=== PATIENT | female | born 1950 | race Caucasian/White ===

== ENCOUNTER 2022-03-18 20:16 | Observation (INO) | payer MEDICARE ==
[2022-03-18] MEDS ORDERED: SODIUM CHLORIDE 0.9% 500 ML 500 ML IV STA (20:31)
--- NOTE | 2022-03-18 20:46 | ED ---
Syncope HPI - General Chief Complaint: Syncope Stated Complaint: syncope Time Seen by Provider: 03/18/22 20:24 Source: EMS, RN notes reviewed Mode of arrival: EMS Limitations: no limitations - History of Present Illness Initial Comments: This is a pleasant 73-year-old female who presents via EMS after having a syncopal episode at home. Patient states she was at her sewing machine, sitting, started to feel nauseous and then the next thing she knows she was on the floor. Patient denied any other preceding symptomology. Patient states that since falling she now has a slight ache between her shoulder blades. She is denying any chest pain. Patient states she vomited several times after the syncopal episode. Denies any vision changes. No vertigo. Denying any neck pain. No significant headache. Patient states that both of her great toes are hurting after the fall. Patient denies any recent illness. No fever or chills. No new medications. No history of blood clots. Aching pain between his shoulder blades is not exacerbated by anything. No evidence aspirin by palpation. No headache, no fever or chills, no changes in vision or hearing, no sore throat or difficulty with speech, no neck pain, no chest pain or shortness of breath, no abdominal pain, no nausea or vomiting, no changes in urination or bowel movements, no numbness or tingling, no extremity pain, no skin rashes or lesions. Past medical, surgical, social, and family history reviewed. - Related Data Allergies Allergy/AdvReac Type Severity Reaction Status Date / Time No Known Allergies Allergy Verified 03/18/22 20:49 Review of Systems ROS Statement: Those systems with pertinent positive or pertinent negative responses have been documented in the HPI. ROS Other: All systems not noted in ROS Statement are negative. Past Medical History Past Medical History: Hyperlipidemia, Hypertension Additional Past Surgical History / Comment(s): part of lung removed Past Psychological History: No Psychological Hx Reported Smoking Status: Never smoker Past Alcohol Use History: None Reported Past Drug Use History: None Reported General Exam - General Exam Comments Initial Comments: This is a well-developed, well-nourished 73-year-old female in no significant distress at the time I'm seeing her. Cranial nerves II through XII are intact. Patient is alert and oriented 4. Does not appear to be ill or toxic. CMS in tact Limitations: no limitations General appearance: alert, in no apparent distress Head exam: Present: atraumatic, normocephalic, normal inspection Eye exam: Present: normal appearance, PERRL, EOMI. Absent: scleral icterus, conjunctival injection, periorbital swelling ENT exam: Present: normal exam, normal oropharynx, mucous membranes dry, mucous membranes moist, normal external ear exam Neck exam: Present: normal inspection, full ROM. Absent: tenderness, meningismus, lymphadenopathy Respiratory exam: Present: normal lung sounds bilaterally. Absent: respiratory distress, wheezes, rales, rhonchi, stridor, chest wall tenderness, accessory muscle use, decreased breath sounds, prolonged expiratory Cardiovascular Exam: Present: regular rate, normal rhythm, normal heart sounds. Absent: systolic murmur, diastolic murmur, rubs, gallop, clicks GI/Abdominal exam: Present: soft, normal bowel sounds. Absent: distended, tenderness, guarding, rebound, rigid Extremities exam: Present: normal inspection, full ROM, normal capillary refill, other (Patient has mild tenderness to the dorsum of both great toes. No break in skin integrity.Tetanus. Full range of motion with increased pain). Absent: tenderness, pedal edema, joint swelling, calf tenderness Back exam: Present: normal inspection Neurological exam: Present: alert, oriented X3, CN II-XII intact. Absent: altered, motor sensory deficit Psychiatric exam: Present: normal affect, normal mood Skin exam: Present: warm, dry, intact, normal color. Absent: rash Course Vital Signs 03/18/22 03/18/22 03/18/22 20:18 22:00 23:03 Temperature 97.7 F Pulse Rate 85 87 Respiratory 18 16 Rate Blood Pressure 122/90 128/88 Blood Pressure 138/91 [Right Arm Supine] O2 Sat by Pulse 97 97 Oximetry 03/18/22 23:05 Temperature Pulse Rate Respiratory Rate Blood Pressure Blood Pressure 131/91 [Right Arm Supine] O2 Sat by Pulse Oximetry - Reevaluation(s) Reevaluation #1: 03/18/22 22:49 Patient was reevaluated and is resting comfortably in bed. Alert and oriented 4, cranial nerves II through XII intact. Reevaluation #2: 03/18/22 23:09 Patient reevaluated again, in the room now. Further history given. Apparently the patient has had 2 other syncopal episodes within the last year. EKG Findings - EKG Comments: EKG Findings:: EKG done at 2035 reveals sinus rhythm with a rate of 79. Normal intervals. Normal axis. Normal QRS morphology. Patient does have a Q-wave noted in lead 3 with flattened T waves in lead 3. Nonspecific T-wave flattening seen in the precordial leads as well. Review by the ED attending physician. Medical Decision Making - Medical Decision Making Patient had nausea then apparently had a syncopal episode which was unwitnessed. No definitive seizure activity. Patient has some aching pain between her shoulder blades which she rates The case was discussed in detail with ED attending physician. Presentation, findings, treatment plan discussed in detail. Manager Behavioral, Dr. Gerber - Lab Data Result diagrams: 03/18/22 20:31 03/18/22 20:31 Lab Results 03/18/22 03/18/22 03/18/22 Range/Units 20:31 20:31 20:31 WBC 7.9 (3.8-10.6) k/uL RBC 3.86 (3.80-5.40) m/uL Hgb 12.2 (11.4-16.0) gm/dL Hct 34.3 (34.0-46.0) % MCV 88.9 (80.0-100.0) fL MCH 31.6 (25.0-35.0) pg MCHC 35.6 (31.0-37.0) g/dL RDW 11.8 (11.5-15.5) % Plt Count 274 (150-450) k/uL MPV 8.0 Neutrophils % 70 % Lymphocytes % 20 % Monocytes % 5 % Eosinophils % 3 % Basophils % 1 % Neutrophils # 5.6 (1.3-7.7) k/uL Lymphocytes # 1.6 (1.0-4.8) k/uL Monocytes # 0.4 (0-1.0) k/uL Eosinophils # 0.2 (0-0.7) k/uL Basophils # 0.1 (0-0.2) k/uL D-Dimer 6.41 H (<0.60) mg/L FEU Sodium 139 (137-145) mmol/L Potassium 3.7 (3.5-5.1) mmol/L Chloride 101 (98-107) mmol/L Carbon Dioxide 26 (22-30) mmol/L Anion Gap 12 mmol/L BUN 28 H (7-17) mg/dL Creatinine 1.30 H (0.52-1.04) mg/dL Est GFR (CKD-EPI)AfAm 48 (>60 ml/min/1.73 sqM) Est GFR (CKD-EPI)NonAf 41 (>60 ml/min/1.73 sqM) Glucose 128 H (74-99) mg/dL Calcium 9.6 (8.4-10.2) mg/dL Magnesium 1.7 (1.6-2.3) mg/dL Total Bilirubin 0.3 (0.2-1.3) mg/dL AST 37 H (14-36) U/L ALT 27 (4-34) U/L Alkaline Phosphatase 77 (38-126) U/L Troponin I (0.000-0.034) ng/mL NT-Pro-B Natriuret Pep pg/mL Total Protein 7.2 (6.3-8.2) g/dL Albumin 4.5 (3.5-5.0) g/dL 03/18/22 03/18/22 Range/Units 20:31 20:31 WBC (3.8-10.6) k/uL RBC (3.80-5.40) m/uL Hgb (11.4-16.0) gm/dL Hct (34.0-46.0) % MCV (80.0-100.0) fL MCH (25.0-35.0) pg MCHC (31.0-37.0) g/dL RDW (11.5-15.5) % Plt Count (150-450) k/uL MPV Neutrophils % % Lymphocytes % % Monocytes % % Eosinophils % % Basophils % % Neutrophils # (1.3-7.7) k/uL Lymphocytes # (1.0-4.8) k/uL Monocytes # (0-1.0) k/uL Eosinophils # (0-0.7) k/uL Basophils # (0-0.2) k/uL D-Dimer (<0.60) mg/L FEU Sodium (137-145) mmol/L Potassium (3.5-5.1) mmol/L Chloride (98-107) mmol/L Carbon Dioxide (22-30) mmol/L Anion Gap mmol/L BUN (7-17) mg/dL Creatinine (0.52-1.04) mg/dL Est GFR (CKD-EPI)AfAm (>60 ml/min/1.73 sqM) Est GFR (CKD-EPI)NonAf (>60 ml/min/1.73 sqM) Glucose (74-99) mg/dL Calcium (8.4-10.2) mg/dL Magnesium (1.6-2.3) mg/dL Total Bilirubin (0.2-1.3) mg/dL AST (14-36) U/L ALT (4-34) U/L Alkaline Phosphatase (38-126) U/L Troponin I <0.012 (0.000-0.034) ng/mL NT-Pro-B Natriuret Pep 45 pg/mL Total Protein (6.3-8.2) g/dL Albumin (3.5-5.0) g/dL Disposition Clinical Impression: Closed fracture of distal phalanx of right great toe, Upper back pain, Syncope and collapse Narrative: Syncope, possibly cardiogenic Disposition: ADMITTED IP TO THIS [facility] Condition: Stable Referrals: Marci Rincon MD [Primary Care Provider] - 1-2 days Time of Disposition: 22:48 Decision to Admit Reason: Admit from EC Decision Time: 22:48
[2022-03-18 20:56] LABS: Basophils # (A) 0.1 k/uL (0-0.2); Basophils % (A) 1 %; Eosinophils # (A) 0.2 k/uL (0-0.7); Eosinophils % (A) 3 %; HCT 34.3 % (34.0-46.0); HGB 12.2 gm/dL (11.4-16.0); Lymphocytes # (A) 1.6 k/uL (1.0-4.8); Lymphocytes % (A) 20 %; MCH 31.6 pg (25.0-35.0); MCHC 35.6 g/dL (31.0-37.0); MCV 88.9 fL (80.0-100.0); Monocytes # (A) 0.4 k/uL (0-1.0); Monocytes % (A) 5 %; Neutrophils # (A) 5.6 k/uL (1.3-7.7); Neutrophils % (A) 70 %; Platelet Count 274 k/uL (150-450); RBC 3.86 m/uL (3.80-5.40); RDW 11.8 % (11.5-15.5); WBC 7.9 k/uL (3.8-10.6)
--- NOTE | 2022-03-18 21:04 | XR ---
EXAMINATION TYPE: XR foot complete bilateral DATE OF EXAM: 03/18/2022 COMPARISON: NONE HISTORY: Foot pain TECHNIQUE: 3 views each foot FINDINGS: The metatarsals are intact. There is possible nondisplaced transverse fracture of the base of the distal phalanx of the right big toe. The other toes appear intact. The hindfoot of left and ri ght foot appear intact. IMPRESSION: Possible nondisplaced fracture of the distal phalanx of the right big toe. Negative left foot exam.
--- NOTE | 2022-03-18 21:07 | XR ---
EXAMINATION TYPE: XR chest 1V portable DATE OF EXAM: 03/18/2022 COMPARISON: NONE HISTORY: Syncope TECHNIQUE: Single view FINDINGS: There is some blunting of the right costophrenic angle. There is mild infiltrate right lung base. Left lung is clear. There are no hilar masses. Thoracic aorta is atheromatous. IMPRESSION: Pleural reaction and atelectasis right lung base. Normal heart . No heart failure.
[2022-03-18 21:08] LABS: Albumin 4.5 g/dL (3.5-5.0); Calcium 9.6 mg/dL (8.4-10.2); Magnesium 1.7 mg/dL (1.6-2.3); Potassium 3.7 mmol/L (3.5-5.1); Total Bilirubin 0.3 mg/dL (0.2-1.3); Total Protein 7.2 g/dL (6.3-8.2)
--- NOTE | 2022-03-18 22:27 | CT ---
EXAMINATION TYPE: CT abdomen pelvis w con DATE OF EXAM: 03/18/2022 COMPARISON: None HISTORY: syncope and fall. pain between shoulder blades and elevated d-dimer. CT DLP: 1278 mGycm Automated exposure control for dose reduction was used. CONTRAST: Performed with IV Contrast, patient injected with 80 mL of Isovue 370. There is some mild pleural thickening at the right lung base and elevated right diaphragm. Heart size is normal. No pericardial effusion. Left lung base is clear. There is mild pleural scarring right meño ng base. Liver and spleen are intact. The stomach is intact. No pancreatic mass. Gallbladder appears normal. T he bile ducts are not dilated. There is no adrenal mass. The kidneys show satisfactory contrast opacification. No hydronephrosis. Th e ureters are not dilated. No retroperitoneal adenopathy. The bladder distends smoothly. No inguinal hernia. Uterus is anteverted. There are numerous sigmoid diverticula. No diverticulitis. Appendix nolberto ears normal. There is no mesenteric edema. No ascites or free air. No sign of a bowel obstruction. Delayed images show normal renal excretion. The lumbar vertebrae have fairly normal spacing and alignment. No compression fracture. The bony pelv is is intact. The hip joints are intact. Sacroiliac joints are intact. There is a mild thoracolumbar levoscoliosis. IMPRESSION: Normal appendix. Note evidence of acute traumatic injury in the abdomen and pelvis. Sigmoid diverticulosis. Pleural diaphragmatic scarring at the right lung base and elevated right diap hragm.
--- NOTE | 2022-03-18 22:33 | CT ---
EXAMINATION TYPE: CT chest angio for PE DATE OF EXAM: 03/18/2022 COMPARISON: None HISTORY: syncope and fall. pain between shoulder blades and elevated d-dimer. CT DLP: 1278 mGycm Automated exposure control for dose reduction was used. CONTRAST: Performed with IV Contrast, patient injected with 80 mL of Isovue 370. There are Three-D postprocessed images. There is elevated right diaphragm and mild pleural thickening and calcification at the right lung bas e. No pleural effusion. Heart size is normal. No pericardial effusion. Thoracic aorta shows no sign of dissection. Ascending aorta measures 3.8 cm. There are no hilar rajni s. No mediastinal adenopathy. No evidence of filling defect in the pulmonary arteries. The thoracic spine is intact. No compression fracture. Sternum is intact. No evidence of rib fracture . No pneumothorax. The shoulder joints appear intact. IMPRESSION: No evidence of pulmonary embolism. Pleural diaphragmatic scarring right lung base. No sign of acute lung disease. No evidence of scapula r fracture.
--- NOTE | 2022-03-18 22:37 | CT ---
EXAMINATION TYPE: CT brain cspine wo con DATE OF EXAM: 03/18/2022 COMPARISON: None HISTORY: syncope and fall. CT DLP: 1431.9 mGycm Automated exposure control for dose reduction was used. Images of the brain and cervical spine obtained with no contrast. The ventricles and sulci appear normal. There is no mass effect or midline shift. No sign of intracra nial hemorrhage. There is mild atrophy appropriate for age. Calvarium is intact. The skull base is in tact. There is incomplete pneumatization of the mastoid sinuses. The cervical vertebra show fairly normal spacing and alignment. Posterior elements are intact. No com pression fracture. Prevertebral soft tissues are intact. There is mild degenerative disc space narrow ing in the lower cervical spine. IMPRESSION: Negative CT scan of the brain. Negative CT scan cervical spine. No evidence of traumatic injury.
[2022-03-18] MEDS ORDERED: ASPIRIN 81 MG PO STA (22:50)
[2022-03-18] MEDS: SODIUM CHLORIDE 0.9% 1,000 ML IV SCH ×2 (22:59→23:41)
[2022-03-18] MEDS ORDERED: MORPHINE SULFATE 4 MG/ML SYRINGE IV PRN (23:02)
[2022-03-18] MEDS ORDERED: NALOXONE 0.4 MG/ML 1 ML VIAL IV PRN (23:02)
[2022-03-18] MEDS ORDERED: ONDANSETRON 4 MG/2 ML VIAL IVP PRN (23:02)
[2022-03-18] MEDS ORDERED: ACETAMINOPHEN TAB 325 MG TAB PO PRN (23:02)
[2022-03-19 00:02] LABS: Appearance,Urine Clear (Clear); Bacteria,Urine Rare /hpf; Bilirubin,Urine Negative (Negative); Blood,Urine Negative (Negative); Color,Urine Yellow; Glucose,Urine (UA) Negative (Negative); Hyaline Casts,Urine 7 /lpf (0-2); Ketones,Urine Negative (Negative); Leukocyte Esterase,Urine Large (Negative); Mucus,Urine Rare /hpf; Nitrite,Urine Negative (Negative); PH, Urine 5.5 (5.0-8.0); Protein,Urine Negative (Negative); RBC,Urine 2 /hpf (0-5); Specific Gravity,Urine 1.035 (1.001-1.035); Squamous Epithelial Cell,Urine <1 /hpf (0-4); Urobilinogen,Urine <2.0 mg/dL (<2.0); WBC,Urine 15 /hpf (0-5)
[2022-03-19] MEDS ORDERED: NALOXONE 0.4 MG/ML 1 ML VIAL IV PRN (00:07)
[2022-03-19] MEDS: HEPARIN SODIUM,PORCINE/PF 5,000 UNIT/0.5 ML SYRINGE SQ SCH ×4 (00:33→23:49)
[2022-03-19 05:13] LABS: Magnesium 1.7 mg/dL (1.6-2.3); Phosphorus 3.7 mg/dL (2.5-4.5); Potassium 3.8 mmol/L (3.5-5.1)
--- NOTE | 2022-03-19 05:47 | P.HPIM ---
History of Present Illness H&P Date: 03/19/22 Chief Complaint: syncope 72 year old female with hypertension , hyperlipidemia patient coming in for evaluation after a syncopal episode, she was sitting in her chair doing nothing, when suddenly felt lightheaded (without attempting to stand up) nauseated and vomited her dinner. then next thing she knows, waking up on the floor. apparently she passed out and her was next to her when she woke up , no report of seizure like activity , loss of bladder or bowel control. when she woke up she was briefly confused , but denies any palpitations, chest pain or trouble breathing. she denies fever, chills, cough , chest pain , SOB, abd pain , changes in bowel or urinary habits. she admits to couple more episodes over the past year, but never had medical evaluation after she woke up her two big toes were hurting blood work in the ED unremarkable patient had CT head and neck, chest , abd and pelvis , no acute pathology in any xray of the foot, showed possible fracture of the right big toe patient D dimer was elevated , no history of blood clots, no recent surgery or hospital stay Review of Systems Pertinent positives as noted in HPI. All other systems were reviewed and are negative Past Medical History Past Medical History: Hyperlipidemia, Hypertension Additional Past Surgical History / Comment(s): part of lung removed Past Psychological History: No Psychological Hx Reported Smoking Status: Never smoker Past Alcohol Use History: None Reported Past Drug Use History: None Reported - Past Family History familiy Family Medical History: Diabetes Mellitus Medications and Allergies Home Medications Medication Instructions Recorded Confirmed Type Ezetimibe [Zetia] 10 mg PO DAILY 03/18/22 03/18/22 History hydroCHLOROthiazide 25 mg PO DAILY 03/18/22 03/18/22 History lisinopriL 40 mg PO DAILY 03/18/22 03/18/22 History Allergies Allergy/AdvReac Type Severity Reaction Status Date / Time No Known Allergies Allergy Verified 03/18/22 20:49 Physical Exam Vitals: Vital Signs Temp Pulse Resp BP BP Pulse Ox 03/19/22 02:53 71 18 122/77 95 03/18/22 23:05 131/91 03/18/22 23:03 138/91 03/18/22 22:00 87 16 128/88 97 10/10/22 20:18 97.7 F 85 18 122/90 97 Intake and Output 03/18/22 03/18/22 03/19/22 14:59 22:59 06:59 Other: Weight 79.379 kg Constitutional: No acute distress, conversant, pleasant Eyes: Anicteric sclerae, moist conjunctiva, Pupils equal round reactive to light ENMT: NC/AT Oropharynx clear, no erythema, or exudates Neck: Supple, no masses, or JVD No carotid bruits No thyromegaly Lungs: Clear to auscultation Clear to percussion Normal respiratory effort, no accessory muscle use Cardiovascular: Heart regular in rate and rhythm, No murmurs, gallops, or rubs No peripheral edema Abdominal: Soft Nontender, no guarding, rebound or rigidity Abdomen moving with respiration Normoactive bowel sounds No hepatomegaly, No splenomegaly No palpable mass No abdominal wall hernia noted Skin: Normal temperature, tone, texture, turgor No induration No subcutaneous nodules No rash, lesions No ulcers Extremities: tenderness over the right big toe No digital cyanosis No clubbing Pedal pulses intact and symmetrical Radial pulses intact and symmetrical No calf tenderness Psychiatric: Alert and oriented to person, place and time Appropriate affect fair judgement Neuro Muscles Strength 5/5 in all 4 extremities Sensation to light touch grossly present throughout Cranial nerves II-XII grossly intact No focal sensory deficits Lymphatics: no palpable cervical or supraclavicular , or inguinal lymph nodes Results CBC & Chem 7: 03/18/22 20:31 03/19/22 04:41 Labs: Abnormal Lab Results - Last 24 Hours (Table) 03/18/22 03/18/22 03/18/22 Range/Units 20:31 20:31 23:24 D-Dimer 6.41 H (<0.60) mg/L FEU BUN 28 H (7-17) mg/dL Creatinine 1.30 H (0.52-1.04) mg/dL Glucose 128 H (74-99) mg/dL AST 37 H (14-36) U/L Ur Leukocyte Esterase Large H (Negative) Urine WBC 15 H (0-5) /hpf Urine Bacteria Rare H (None) /hpf Hyaline Casts 7 H (0-2) /lpf Urine Mucus Rare H (None) /hpf 03/19/22 Range/Units 04:41 D-Dimer (<0.60) mg/L FEU BUN 25 H (7-17) mg/dL Creatinine 1.08 H (0.52-1.04) mg/dL Glucose 109 H (74-99) mg/dL AST (14-36) U/L Ur Leukocyte Esterase (Negative) Urine WBC (0-5) /hpf Urine Bacteria (None) /hpf Hyaline Casts (0-2) /lpf Urine Mucus (None) /hpf Assessment and Plan Assessment: syncopal episode, rule out underlying cardiac causes vs vasovagal supportive care echocardiogram carotid US cardio consult reservations and ticketing agent monitor vital signs fall precautions orthostatic vital s right big toe fracture ortho consult pain control with opiates elevated d-dimer possibly related to the big toe fracture CTA of the chest no acute PE chronic conditions hypertension , resume home blood pressure meds hyperlipidemia , resume statin full code DVT PPX heparin sc tid
[2022-03-19] MEDS: SODIUM CHLORIDE 0.9% 1,000 ML IV SCH ×4 (06:28→22:19)
--- NOTE | 2022-03-19 08:00 | P.CRDCN ---
History of Present Illness History of present illness: HISTORY OF PRESENTING ILLNESS Patient's pleasant 72-year-old female with history of hypertension hyperlipidemia family history of CAD who presents secondary syncopal episode. She states she has had 3 in total with the first occurring after she was scratched sharply by a cat and then began to hyperventilate and felt somewhat nauseous and lightheaded. This was a few months ago. She then had a second episode 2-3 weeks ago when she started feeling some rectal pain after sitting at the dinner table and then decided to start walking around and then started feel nauseous and flushed. She then passed out and woke up on the dinner table. The most recent episode occurred yesterday when she was sitting down and then started feel nauseous and "not right" and then lost consciousness and fell fracturing her toe and woke up on the floor. Afterwards she was feeling nauseous and threw up multiple times. Since coming to emergency department she has felt better. She was found to have mild leukocyte esterase and white blood cells and urine however denies any fevers, chills, dysuria, cough. She denies any recent changes to blood pressure medications and blood pressures mainly in the 120s to 140s. Denies any tobacco abuse, alcohol abuse, illicit drugs. She does have family history of multiple family members having CAD with stenting. She was found to have elevated d-dimer and therefore CTA was performed which showed no PE. Troponins normal 3 and proBNP normal. REVIEW OF SYSTEMS At the time of my exam: CONSTITUTIONAL: Denies fever or chills. CARDIOVASCULAR: Denies chest pain, shortness of breath, orthopnea, PND or palpitations. RESPIRATORY: Denies cough. GASTROINTESTINAL: Denies abdominal pain, diarrhea, constipation, +nausea, +vomiting. MUSCULOSKELETAL: Denies myalgias. NEUROLOGIC: Denies numbness, tingling or weakness. ENDOCRINE: Denies fatigue, weight change, polydipsia or polyurina. GENITOURINARY: Denies burning, hematuria or urgency with micturation. HEMATOLOGIC: Denies history of anemia or bleeding. PHYSICAL EXAMINATION Vital signs reviewed. CONSTITUTIONAL: No apparent distress. HEENT: Head is normocephalic. Pupils are equal, round. Sclerae anicteric. Mucous membranes of the mouth are moist. No JVD. No carotid bruit. CHEST EXAMINATION: Lungs are clear to auscultation. No chest wall tenderness is noted on palpation or with deep breathing. HEART EXAMINATION: Regular rate and rhythm. S1, S2 heard. No murmurs, gallops or rub. ABDOMEN: Soft, nontender. Positive bowel sounds. EXTREMITIES: 2+ peripheral pulses, no lower extremity edema and no calf tenderness. NEUROLOGIC EXAMINATION: Patient is awake, alert and oriented x3. ASSESSMENT 1. Syncope 3 with first 2 episodes appearing more vasovagal and third episode yesterday not clearly vasovagal however some nausea. Third episode did occur while seated however somewhat more concerning for cardiogenic etiology 2. Hypertension well controlled 3. Hyperlipidemia 4. Family history of CAD 5. Abnormal EKG with Q waves inferiorly PLAN Syncope of unclear etiology. First 2 episodes appeared more vaso vagal related with cat injury and rectal pain precipitating episodes. Most recent episode no clear precipitating event however was nauseous prior to episode. Discussed minimum of a 30 day event monitor and possible loop recorder if any more concerning findings however at this point would like to start with a event monitor. Check 2-D echo and if unrevealing and no significant issues on telemetry, patient may be discharged home later today with 30 day event monitor. Follow-up in office after her event monitor, approximately 5 weeks. Discussed checking blood pressures at home and if borderline low may consider decreasing antihypertensive medications. Past Medical History Past Medical History: Hyperlipidemia, Hypertension Additional Past Surgical History / Comment(s): part of lung removed Past Psychological History: No Psychological Hx Reported Smoking Status: Never smoker Past Alcohol Use History: None Reported Past Drug Use History: None Reported - Past Family History familiy Family Medical History: Diabetes Mellitus Medications and Allergies Home Medications Medication Instructions Recorded Confirmed Type Ezetimibe [Zetia] 10 mg PO DAILY 03/18/22 03/18/22 History hydroCHLOROthiazide 25 mg PO DAILY 03/18/22 03/18/22 History lisinopriL 40 mg PO DAILY 03/18/22 03/18/22 History Allergies Allergy/AdvReac Type Severity Reaction Status Date / Time No Known Allergies Allergy Verified 03/18/22 20:49 Physical Exam Vitals: Vital Signs Temp Pulse Resp BP BP Pulse Ox 03/19/22 06:05 74 12 119/84 97 03/19/22 02:53 71 18 122/77 95 03/18/22 23:05 131/91 03/18/22 23:03 138/91 03/18/22 22:00 87 16 128/88 97 03/18/22 20:18 97.7 F 85 18 122/90 97 Intake and Output 03/18/22 03/19/22 03/19/22 22:59 06:59 14:59 Other: Weight 79.379 kg Results 03/18/22 20:31 03/19/22 04:41 Cardiac Enzymes 03/18/22 03/18/22 03/19/22 Range/Units 20:31 20:31 00:45 AST 37 H (14-36) U/L Troponin I <0.012 <0.012 (0.000-0.034) ng/mL 03/19/22 Range/Units 04:41 AST (14-36) U/L Troponin I <0.012 (0.000-0.034) ng/mL CBC 03/18/22 Range/Units 20:31 WBC 7.9 (3.8-10.6) k/uL RBC 3.86 (3.80-5.40) m/uL Hgb 12.2 (11.4-16.0) gm/dL Hct 34.3 (34.0-46.0) % Plt Count 274 (150-450) k/uL Comprehensive Metabolic Panel 03/18/22 03/19/22 Range/Units 20:31 04:41 Sodium 139 138 (137-145) mmol/L Potassium 3.7 3.8 (3.5-5.1) mmol/L Chloride 101 103 (98-107) mmol/L Carbon Dioxide 26 28 (22-30) mmol/L BUN 28 H 25 H (7-17) mg/dL Creatinine 1.30 H 1.08 H (0.52-1.04) mg/dL Glucose 128 H 109 H (74-99) mg/dL Calcium 9.6 9.0 (8.4-10.2) mg/dL AST 37 H (14-36) U/L ALT 27 (4-34) U/L Alkaline Phosphatase 77 (38-126) U/L Total Protein 7.2 (6.3-8.2) g/dL Albumin 4.5 (3.5-5.0) g/dL Current Medications Generic Name Dose Route Start Last Admin Trade Name Freq PRN Reason Stop Dose Admin Acetaminophen 650 mg 03/18/22 23:02 Acetaminophen Tab 325 Mg Tab PO Q6HR PRN Mild Pain or Fever > 100.5 Aspirin 81 mg 03/19/22 09:00 Aspirin 81 Mg PO DAILY [facility] Ezetimibe 10 mg 03/19/22 09:00 Ezetimibe 10 Mg Tab PO DAILY [facility] Heparin Sodium (Porcine) 5,000 unit 03/19/22 00:00 03/19/22 00:33 Heparin Sodium,Porcine/Pf 5,000 Unit/0.5 Ml Syringe SQ 5,000 unit Q8HR [place] Administration Sodium Chloride 1,000 mls @ 130 mls/hr 03/18/22 21:45 03/19/22 06:28 Saline 0.9% IV Not Given .[id number] [place] Sodium Chloride 1,000 mls @ 75 mls/hr 03/18/22 23:15 03/18/22 23:41 Saline 0.9% IV 75 mls/hr .[id number] [place] Administration Lisinopril 40 mg 03/19/22 09:00 Lisinopril 20 Mg Tab PO DAILY [facility] Morphine Sulfate 4 mg 03/18/22 23:02 Morphine Sulfate 4 Mg/Ml Syringe IV Q4HR PRN Severe Pain (Scale 7 to 10) Naloxone HCl 0.2 mg 03/19/22 00:07 Naloxone 0.4 Mg/Ml 1 Ml Vial IV Q2M PRN Opioid Reversal Ondansetron HCl 4 mg 03/18/22 23:02 Ondansetron 4 Mg/2 Ml Vial IVP Q8HR PRN Nausea And Vomiting Intake and Output 03/18/22 03/19/22 03/19/22 22:59 06:59 14:59 Other: Weight 79.379 kg 03/18/22 20:31 03/19/22 04:41
--- NOTE | 2022-03-19 08:54 | US ---
EXAMINATION TYPE: US carotid duplex BILAT DATE OF EXAM: 03/19/2022 COMPARISON: NONE CLINICAL HISTORY: 72-year-old female syncope. TECHNIQUE: Carotid duplex ultrasound examination. Indirect Doppler criteria was utilized. FINDINGS: EXAM MEASUREMENTS: RIGHT: Peak Systolic Velocity (PSV) cm/sec ----- Right CCA: 54.6 ----- Right ICA: 86.4 ----- Right ECA: 79.8 ICA/CCA ratio: 1.6 RIGHT: End Diastole cm/sec ----- Right CCA: 22.3 ----- Right ICA: 41.3 ----- Right ECA: 14.9 LEFT: Peak Systolic Velocity (PSV) cm/sec ----- Left CCA: 67.7 ----- Left ICA: 66.0 ----- Left ECA: 93.1 ICA/CCA ratio: 1.0 LEFT: End Diastole cm/sec ----- Left CCA: 22.6 ----- Left ICA: 20.6 ----- Left ECA: 14.3 VERTEBRALS (direction of flow): Right Vertebral: Antegrade Left Vertebral: Antegrade Rhythm: Normal IMPRESSION: No hemodynamically significant internal carotid artery stenosis on either side. Criteria for Assigning % of Stenosis / Diameter reduction (Estimation based on the indirect measurements of the internal carotid artery velocities (ICA PSV). 1. Normal (no stenosis)=ICA PSV < 125 cm/s: ratio < 2.0: ICA EDV<40 cm/s. 2. Less than 50% stenosis=ICA PSV < 125 cm/s: ratio < 2.0: ICA EDV<40 cm/s. 3. 50 to 69% stenosis=ICA PSV of 125 to 230 cm/s: ration 2.0 ? 4.0: ICA EDV 40-100 cm/s. 4. Greater than 70% stenosis to near occlusion= ICA PSV > 230 cm/s: ratio > 4.0: ICA EDV > 100 cm/s. 5. Near occlusion= ICA PSV velocities may be low or undetectable: variable ratio and ICA EDV. 6. Total occlusion=unable to detect flow.
[2022-03-19] MEDS: EZETIMIBE 10 MG TAB PO SCH (09:05)
[2022-03-19] MEDS: lisinopriL 20 MG TAB PO SCH (09:05)
[2022-03-19] MEDS: ASPIRIN 81 MG PO SCH (09:06)
--- NOTE | 2022-03-19 09:22 | P.CNOR ---
History of Present Illness - [facility] Consult date: 03/19/22 History of present illness: This patient is a 72-year-old female with past medical history of hypertension, hyperlipidemia that presented to [facility] emergency department on 03/18/22 after a syncopal episode at home. The patient states she was sitting in the chair and became nauseated, and next thing she knew she was on the floor. EMS was called and the patient was transported to the emergency department. On arrival to the emergency department, the patient was complaining of bilateral foot pain. X-rays were taken of her bilateral feet and revealed a possible right foot fracture. She was admitted under the care of internal medicine with consult placed to cardiology. Orthopedic surgery was consulted for evaluation of her right foot. Patient is examined bedside this morning in the emergency department. She is complaining of isolated right great toe pain. She denies any additional injuries or complaints. She states she has attempted to get up and walk in the emergency department and is experiencing pain at the right great toe with weightbearing. She denies minimal pain in the left foot. She states she was experiencing pain between her shoulders upon arrival, although this has improved. Vital signs stable. Past Medical History Past Medical History: Hyperlipidemia, Hypertension Additional Past Surgical History / Comment(s): part of lung removed Past Psychological History: No Psychological Hx Reported Smoking Status: Never smoker Past Alcohol Use History: None Reported Past Drug Use History: None Reported - Past Family History familiy Family Medical History: Diabetes Mellitus Medications and Allergies Home Medications Medication Instructions Recorded Confirmed Type Ezetimibe [Zetia] 10 mg PO DAILY 03/18/22 03/18/22 History hydroCHLOROthiazide 25 mg PO DAILY 03/18/22 03/18/22 History lisinopriL 40 mg PO DAILY 03/18/22 03/18/22 History Allergies Allergy/AdvReac Type Severity Reaction Status Date / Time No Known Allergies Allergy Verified 03/19/22 08:52 Physical Examination On examination, patient is sitting up on the gurney in no apparent distress. She is alert and orientated 3. Her is bedside. Her head appears normocephalic and atraumatic. Her breathing appears nonlabored. On inspection of her bilateral upper extremities, there are no obvious deformities or signs of trauma. On inspection of her left lower extremity, no obvious deformities or signs of trauma. Focused examination of the right foot is conducted. On inspection of the right foot, there is a small area of ecchymosis, swelling of the right great toe. No open wounds, skin is intact. There is pain with palpation of the great toe, first MTP joint. Pain with passive [id number] of the first MTP joint. No pain with passive [id number] of the right ankle, knee, hip. The right foot and right great toe are warm and well perfused with brisk capillary refill distally. Motor and sensory function is intact of the right lower extremity. Results Bilateral foot x-ray 03/18/22: Non-displaced fracture of the distal phalanx of the hallux. No additional fractures identified. No fractures identified of the left foot. - Labs Labs: Abnormal Lab Results - Last 24 Hours (Table) 03/18/22 03/18/22 03/18/22 Range/Units 20:31 20:31 23:24 D-Dimer 6.41 H (<0.60) mg/L FEU BUN 28 H (7-17) mg/dL Creatinine 1.30 H (0.52-1.04) mg/dL Glucose 128 H (74-99) mg/dL AST 37 H (14-36) U/L Ur Leukocyte Esterase Large H (Negative) Urine WBC 15 H (0-5) /hpf Urine Bacteria Rare H (None) /hpf Hyaline Casts 7 H (0-2) /lpf Urine Mucus Rare H (None) /hpf 03/19/22 Range/Units 04:41 D-Dimer (<0.60) mg/L FEU BUN 25 H (7-17) mg/dL Creatinine 1.08 H (0.52-1.04) mg/dL Glucose 109 H (74-99) mg/dL AST (14-36) U/L Ur Leukocyte Esterase (Negative) Urine WBC (0-5) /hpf Urine Bacteria (None) /hpf Hyaline Casts (0-2) /lpf Urine Mucus (None) /hpf H & H 03/18/22 Range/Units 20:31 Hgb 12.2 (11.4-16.0) gm/dL Hct 34.3 (34.0-46.0) % Result Diagrams: 03/18/22 20:31 03/19/22 04:41 Assessment and Plan Assessment: Non-displaced fracture of the distal phalanx of the right hallux Plan: - Clinical and imaging findings were discussed with the patient. No surgical intervention recommended. Recommend immobilization of the right foot in a tall CAM boot or post-operative shoe. She may bear weight to tolerance on the right foot while wearing the boot or post-op shoe. She may use a walker as needed for assistance with ambulation. Recommend evaluation by physical therapy prior to discharge, when she is cleared to ambulate by primary team. - Ice, elevate right foot for swelling and pain control. Pain management as needed. - She may follow-up in our office as an outpatient in 1-2 weeks for repeat x- rays of the right foot.
--- NOTE | 2022-03-19 17:50 | P.PN ---
Progress Note - Text Progress Note Date: 03/19/22 Hospitalist Interval Note Patient seen and examined at bedside. Vital signs reviewed General: non toxic, no distress, appears at stated age Derm: warm, dry Head: atraumatic, normocephalic, symmetric Eyes: EOMI, no lid lag, anicteric sclera Mouth: no lip lesion, mucus membranes moist Cardiovascular: S1S2 reg, no murmur, positive posterior tibial pulse bilateral, Lungs: CTA bilateral, no rhonchi, no rales , no accessory muscle use Abdominal: soft, nontender to palpation, no guarding, no appreciable organomegaly Ext: no gross muscle atrophy, no edema, no contractures, right big toe tenderness Neuro: CN II-XI grossly intact, no focal neuro deficits Psych: Alert, oriented, appropriate affect Assessment/Plan: Syncope Right big toe fracture Elevated d-dimer Hypertension Hyperlipidemia -Pending Echo, if negative will likely go home with a 30 day event monitor This is an update note for patient , for full note on 03/19/22 at 2:39. There is no charge associated with this note.
[2022-03-20 02:59] VITALS: TEMP 97.9
[2022-03-20] MEDS: SODIUM CHLORIDE 0.9% 1,000 ML IV SCH ×2 (03:26→04:35)
--- NOTE | 2022-03-20 07:56 | P.PN ---
Subjective HISTORY OF PRESENTING ILLNESS Patient's pleasant 72-year-old female with history of hypertension hyperlipidemia family history of CAD who presents secondary syncopal episode. She states she has had 3 in total with the first occurring after she was scratched sharply by a cat and then began to hyperventilate and felt somewhat nauseous and lightheaded. This was a few months ago. She then had a second episode 2-3 weeks ago when she started feeling some rectal pain after sitting at the dinner table and then decided to start walking around and then started feel nauseous and flushed. She then passed out and woke up on the dinner table. The most recent episode occurred yesterday when she was sitting down and then started feel nauseous and "not right" and then lost consciousness and fell fracturing her toe and woke up on the floor. Afterwards she was feeling nauseous and threw up multiple times. Since coming to emergency department she has felt better. She was found to have mild leukocyte esterase and white blood cells and urine however denies any fevers, chills, dysuria, cough. She denies any recent changes to blood pressure medications and blood pressures mainly in the 120s to 140s. Denies any tobacco abuse, alcohol abuse, illicit drugs. She does have family history of multiple family members having CAD with stenting. She was found to have elevated d-dimer and therefore CTA was performed which showed no PE. Troponins normal 3 and proBNP normal. 03/20 Patient seen and examined. Patientdenies any lightheadedness or dizziness. telemetry reveals sinus rhythm without significant arrhythmias. 30 day event monitor was hooked up yesterday. Echocardiogram performed which shows EF 55-60% with mild mitral regurgitation. Results not transferred over. PHYSICAL EXAMINATION Vital signs reviewed. CONSTITUTIONAL: No apparent distress. HEENT: Head is normocephalic. Pupils are equal, round. Sclerae anicteric. Mucous membranes of the mouth are moist. No JVD. No carotid bruit. CHEST EXAMINATION: Lungs are clear to auscultation. No chest wall tenderness is noted on palpation or with deep breathing. HEART EXAMINATION: Regular rate and rhythm. S1, S2 heard. No murmurs, gallops or rub. ABDOMEN: Soft, nontender. Positive bowel sounds. EXTREMITIES: 2+ peripheral pulses, no lower extremity edema and no calf tenderne ss. NEUROLOGIC EXAMINATION: Patient is awake, alert and oriented x3. ASSESSMENT 1. Syncope 3 with first 2 episodes appearing more vasovagal and third episode yesterday not clearly vasovagal however some nausea. Third episode did occur while seated however somewhat more concerning for cardiogenic etiology 2. Hypertension well controlled 3. Hyperlipidemia 4. Family history of CAD 5. Abnormal EKG with Q waves inferiorly. Suspect normal variant with preserved EF on echo. PLAN First 2 episodes appeared more vasovagal related. Check 30 day event monitor. Echo shows preserved EF and patient stable for discharge home with event monitor. Recommend holding hydrochlorothiazide going home given some what borderline blood pressures at times. Objective - Vital Signs Vital signs: Vital Signs Temp 97.9 F 03/20/22 02:00 Pulse 81 03/20/22 02:00 Resp 18 03/20/22 02:00 BP 156/95 03/20/22 02:00 Pulse Ox 97 03/20/22 02:00 FiO2 Intake & Output 03/19/22 03/20/22 03/20/22 18:59 06:59 18:59 Intake Total 118 Balance 118 Weight 79.379 kg Intake: Oral 118 Other: # Voids 1 2 - Labs CBC & Chem 7: 03/18/22 20:31 03/19/22 04:41 Labs: Microbiology - Last 24 Hours (Table) 03/18/22 23:24 Urine Culture - Preliminary Urine,Voided
[2022-03-20 08:15] VITALS: BP 127/80; PULSE 68; RESP 15
[2022-03-20] MEDS: lisinopriL 20 MG TAB PO SCH (08:36)
[2022-03-20] MEDS: ASPIRIN 81 MG PO SCH (08:36)
[2022-03-20] MEDS: HEPARIN SODIUM,PORCINE/PF 5,000 UNIT/0.5 ML SYRINGE SQ SCH (08:36)
[2022-03-20] MEDS: EZETIMIBE 10 MG TAB PO SCH (08:36)
--- NOTE | 2022-03-20 10:10 | P.DS ---
Providers Date of admission: 03/19/22 00:07 Expected date of discharge: 03/20/22 Attending physician: Rachael Bellamy MD Consults: 03/18/22 23:06 Consult Physician Routine Consulting Provider: Pro Pate Consult Reason/Comments: Right great toe fracture Do you want consulting provider notified?: Yes, Notify in am 03/18/22 23:15 Consult Physician Urgent Consulting Provider: Anil Pratt Consult Reason/Comments: Syncope Do you want consulting provider notified?: Yes, Notify in am Primary care physician: Marci Rincon MD Hospital Course: Discharge Diagnosis: Syncope Right big toe fracture Elevated d-dimer Hypertension Dyslipidemia Sigmoid diverticulosis Hospital Course: 72-year-old female with history of hypertension and dyslipidemia presented after syncopal episodes. Her first 2 episodes of syncope had prodromal symptoms however the third syncopal episode happened while she was sitting in a chair. No reported seizure-like activity. She also noted that her right-sided big toe was hurting after she had the syncopal episode. On admission, patient had negative CT head and neck, chest, abdomen and pelvis. X-ray of the foot showed possible fracture of the right big toe. D-dimer was elevated, the CTA chest was negative for any pulmonary embolism. Cardiology was consulted. Echo showed Preserved EF. Cardiology will like patient to have a 30 day event monitor to evaluate for any arrhythmias. She will have a follow-up with cardiology after the 30 day period. Due to low blood pressure, hydrochlorothiazide was held at discharge. Patient was also seen by orthopedics. Recommended immobilization of the right foot in a tall cam boot or a postop shoe, she may bear weight tolerance on the right foot while wearing the boot or postop shoe. She may use a walker as needed for assistance with ambulation. Ice, elevate right foot for swelling and pain control. Follow-up with orthopedics as an outpatient in 1-2 weeks for repeat x-rays of the right foot. Patient seen and examined at bedside. Vital signs reviewed and stable. General: non toxic, no distress, appears at stated age Derm: warm, dry Head: atraumatic, normocephalic, symmetric Eyes: EOMI, no lid lag, anicteric sclera Mouth: no lip lesion, mucus membranes moist Cardiovascular: S1S2 reg, no murmur, positive posterior tibial pulse bilateral, Lungs: CTA bilateral, no rhonchi, no rales , no accessory muscle use Abdominal: soft, nontender to palpation, no guarding, no appreciable organomegaly Ext: no gross muscle atrophy, no edema, no contractures, right big toe tend erness Neuro: CN II-XI grossly intact, no focal neuro deficits Psych: Alert, oriented, appropriate affect A total of 37 minutes of time were spent preparing this complex discharge summary. Patient was discharged on 03/20/22 at 8:23. Patient Condition at Discharge: Stable Plan - Discharge Summary Discharge Rx Participant: Yes New Discharge Prescriptions: Continue Ezetimibe [Zetia] 10 mg PO DAILY lisinopriL 40 mg PO DAILY Discontinued hydroCHLOROthiazide 25 mg PO DAILY Discharge Medication List Ezetimibe [Zetia] 10 mg PO DAILY 03/18/22 [History] lisinopriL 40 mg PO DAILY 03/18/22 [History] Follow up Appointment(s)/Referral(s): Marci Rincon MD [Primary Care Provider] - 1-2 days Sami Zaragoza DO [STAFF PHYSICIAN] - 1 Week (Follow up with Dr Zaragoza in 29 days . ) Kenna West PAC [PHYSICIAN ENVELOPE STAMPING MACHINE OPERATOR] - 03/28/22 9:00 am Patient Instructions/Handouts: Syncope (DC) Activity/Diet/Wound Care/Special Instructions: Please wear the 30 day event monitor and see cardiology after that. Please see orthopaedics in 1 week. Please wear the orthopedic boot when up and walking. Discharge Disposition: HOME SELF-CARE
--- NOTE | 2022-03-20 12:36 | CA ---
Transthoracic Echo Report Name: Kelle Amador Age: 72 Gender: F : 1950 Exam Date: 03/19/2022 08:47 Exam Location: [place] [facility] Ht (in): 67 Wt (lb): 175 Ordering Physician: Rachael Bellamy MD Attending/Referring Phys: [id number], [facility] Liaison Janel Hanson, EDDIE Procedure CPT: Indications: Syncope Cardiac Hx: Technical Quality: Fair Contrast 1: Total Dose (mL): Contrast 2: Total Dose (mL): MEASUREMENTS (Male / Female) Normal Values 2D ECHO LV Diastolic Diameter PLAX 2.0 cm 4.2 - 5.9 / 3.9 - 5.3 cm LV Systolic Diameter PLAX 1.4 cm IVS Diastolic Thickness 1.4 cm 0.6 - 1.0 / 0.6 - 0.9 cm LVPW Diastolic Thickness 1.3 cm 0.6 - 1.0 / 0.6 - 0.9 cm LV Relative Wall Thickness 1.4 RV Internal Dim ED PLAX 3.0 cm LA Volume 34.2 cm??? 18 - 58 / 22 - 52 cm??? M-MODE Aortic Root Diameter MM 3.2 cm LA Systolic Diameter MM 4.0 cm LA Ao Ratio MM 1.3 AV Cusp Separation MM 1.7 cm DOPPLER AV Peak Velocity 157.6 cm/s AV Peak Gradient 9.9 mmHg LVOT Peak Velocity 94.8 cm/s LVOT Peak Gradient 3.6 mmHg MV Area PHT 3.0 cm??? Mitral E Point Velocity 84.1 cm/s Mitral A Point Velocity 85.8 cm/s Mitral E to A Ratio 1.0 MV Deceleration Time 249.4 ms TR Peak Velocity 157.9 cm/s TR Peak Gradient 10.0 mmHg Right Ventricular Systolic Press 15.0 mmHg FINDINGS Left Ventricle Moderately increased left ventricular wall thickness. Normal left ventricular systolic function with no obvious regional wall motion abnormalities. Left ventricular ejection fraction is estimated at 55-60 %. Right Ventricle Normal right ventricular size and function. Right ventricular systolic pressure within normal limits. Right Atrium Normal right atrial size. Left Atrium Normal left atrial size. No evidence for an atrial septal defect. Mitral Valve Structurally normal mitral valve. Mild mitral regurgitation. Aortic Valve No aortic valve stenosis or regurgitation. Tricuspid Valve Structurally normal tricuspid valve. Mild tricuspid regurgitation. Pulmonic Valve Structurally normal pulmonic valve. Trace pulmonic regurgitation. Pericardium No pericardial effusion. Aorta Normal size aortic root and proximal ascending aorta. CONCLUSIONS Moderate LVH Normal left ventricular ejection fraction 55-60% Mild mitral regurgitation Mild tricuspid regurgitation No pericardial effusion Previewed by: Dr. Sami Zaragoza DO (Electronically Signed) Final Date: 20 March 2022 12:35
== END 2022-03-20 10:45 | disposition home or self-care (01) ==
LOC: EC 20:16 → 6NMEDSUR 03-19 00:07
PROVIDERS: ADMIT Internal Medicine; ATTEND Internal Medicine
DX: R55 Syncope and collapse (principal); S92.424A Nondisplaced fracture of distal phalanx of right great toe, initial encounter for closed fracture; K57.30 Diverticulosis of large intestine without perforation or abscess without bleeding; R79.89 Other specified abnormal findings of blood chemistry; I10 Essential (primary) hypertension; E78.5 Hyperlipidemia, unspecified; I70.0 Atherosclerosis of aorta; J98.11 Atelectasis; M50.33 Other cervical disc degeneration, cervicothoracic region; R94.31 Abnormal electrocardiogram [ECG] [EKG]; I08.1 Rheumatic disorders of both mitral and tricuspid valves; I37.1 Nonrheumatic pulmonary valve insufficiency; Z90.2 Acquired absence of lung [part of]; Z79.899 Other long term (current) drug therapy; Z82.49 Family history of ischemic heart disease and other diseases of the circulatory system; Z83.3 Family history of diabetes mellitus; W07.XXXA Fall from chair, initial encounter; Y92.009 Unspecified place in unspecified non-institutional (private) residence as the place of occurrence of the external cause
CPT/HCPCS: 96361 ×2; 96372 ×3; 96360; 99285; 36415; 93005; 93306; 93270; 85379; 83880; 80053; 80048; 83735 ×2; 84100; 84484 ×2; 85025; 81001; 87086; 73630; 71045; 93880; 72125; 70450; 71275; 74177; G0378 ×2; Q9967; J1644 ×2